=== PATIENT | male | born 1980 | race Caucasian/White ===

== ENCOUNTER 2020-11-13 21:16 | Emergency (ER) | payer OTHER ==
[~2020-11-13 21:16] MED LIST: Iopamidol-370 76% 500 ML 1 ML ONE
[2020-11-13] MEDS ORDERED: Morphine 4 MG/ML VIAL ONE (22:15)
[2020-11-13] MEDS ORDERED: Ondansetron PF 4 MG/2 ML Vial ONE (22:15)
[2020-11-13 22:22] LABS: #Basophils 0.1 thou/uL (0.0-0.2); #Eosinphils 0.2 thou/uL (0.0-0.7); #Lymphocytes 2.5 thou/uL (1.20-3.40); #Monocytes 0.8 thou/uL (0.11-0.59); #Neutrophils 9.8 thou/uL (1.40-6.50); %Basophils 0.5 % (0.0-1.0); %Eosinophils 1.6 % (0.0-10.0); %Lymphocytes 18.6 % (21.0-51.0); %Monocytes 5.9 % (0.0-10.0); %Neutrophils 73.4 % (42.0-75.0); Hemoglobin 14.6 g/dL (14.0-18.0); Mean Corpuscular HGB CONC 34.3 g/dL (32.0-36.0); Mean Corpuscular Hemoglobin 33.3 pg (27.0-31.0); Mean Corpuscular Volume 97.1 fL (78.0-98.0); Mean Platelet Volume 7.7 fL (7.4-10.4); Platelet Count 277 thou/uL (130-400); RBC Distribution Width 11.7 % (11.5-14.5); Red Blood Cell (RBC) Count 4.38 mill/uL (4.70-6.10); White Blood Cell (WBC) Count 13.3 thou/uL (4.8-10.8)
[2020-11-13 22:37] LABS: ALT (SGPT) 14 U/L (8-55); AST (SGOT) 25 U/L (5-34); Albumin 4.4 g/dL (3.5-5.0); Alkaline Phosphatase 68 U/L (40-110); Anion Gap 12 mmol/L (10-20); BUN (Urea Nitrogen) 18 mg/dL (8.9-20.6); Bilirubin, Total 0.6 mg/dL (0.2-1.2); Calc. Creatinine Clearance 0 mL/min (70-130); Calcium 9.2 mg/dL (7.8-10.44); Carbon Dioxide 23 mmol/L (22-29); Chloride 108 mmol/L (98-107); Globulin 2.7 g/dL (2.4-3.5); Glucose 94 mg/dL (70-105); Potassium 4.1 mmol/L (3.5-5.1); Protein, Total 7.1 g/dL (6.0-8.3); Sodium 139 mmol/L (136-145)
[2020-11-14] MEDS ORDERED: Ketorolac Tromethamine 30 MG/ML VIAL ONE (00:01)
== END 2020-11-14 00:09 | disposition home or self-care (01) ==
LOC: ERS 21:16
DX: S09.90XA Unspecified injury of head, initial encounter (principal); M25.512 Pain in left shoulder; M54.2 Cervicalgia; W17.89XA Other fall from one level to another, initial encounter
CPT/HCPCS: 36415; 70450; 71260; 72040; 72072; 72100; 72125; 80053; 85025; 96374; 96375; J1885; J2270; J2405; Q9967

== ENCOUNTER 2022-01-31 16:57 | Emergency (ER) | payer MEDICARE, OTHER ==
[2022-01-31 17:58] LABS: #Basophils 0.1 thou/uL (0.0-0.2); #Eosinphils 0.3 thou/uL (0.0-0.7); #Lymphocytes 2.5 thou/uL (1.20-3.40); #Monocytes 0.5 thou/uL (0.11-0.59); %Basophils 0.7 % (0.0-1.0); %Eosinophils 2.7 % (0.0-10.0); %Lymphocytes 26.9 % (21.0-51.0); %Monocytes 5.4 % (0.0-10.0); %Neutrophils 64.4 % (42.0-75.0); Hemoglobin 15.8 g/dL (14.0-18.0); Mean Corpuscular HGB CONC 32.9 g/dL (32.0-36.0); Mean Corpuscular Hemoglobin 31.8 pg (27.0-31.0); Mean Corpuscular Volume 96.6 fL (78.0-98.0); Mean Platelet Volume 7.1 fL (7.4-10.4); Platelet Count 360 thou/uL (130-400); RBC Distribution Width 12.6 % (11.5-14.5); Red Blood Cell (RBC) Count 4.97 mill/uL (4.70-6.10); White Blood Cell (WBC) Count 9.3 thou/uL (4.8-10.8)
[2022-01-31] MEDS ORDERED: Morphine 4 MG/ML VIAL ONE (18:09)
[2022-01-31] MEDS ORDERED: Ketorolac Tromethamine 30 MG/ML VIAL ONE (18:09)
[2022-01-31] MEDS ORDERED: Acetaminophen 500 MG TAB ONE (18:09)
[2022-01-31 18:19] LABS: Anion Gap 13 mmol/L (10-20); BUN (Urea Nitrogen) 9 mg/dL (8.9-20.6); Calc. Creatinine Clearance 0 mL/min (70-130); Carbon Dioxide 21 mmol/L (22-29); Chloride 110 mmol/L (98-107); Potassium 4.1 mmol/L (3.5-5.1); Sodium 140 mmol/L (136-145)
[2022-01-31 18:20] LABS: ALT (SGPT) 11 U/L (8-55); AST (SGOT) 17 U/L (5-34); Alkaline Phosphatase 133 U/L (40-110); Bilirubin, Total 0.3 mg/dL (0.2-1.2); CRP (Inflammatory) 0.61 mg/dL (= or < 0.5); Calcium 9.5 mg/dL (7.8-10.44); Globulin 3.4 g/dL (2.4-3.5); Glucose 81 mg/dL (70-105); Protein, Total 7.4 g/dL (6.0-8.3)
== END 2022-01-31 19:04 | disposition home or self-care (01) ==
LOC: ERS 16:57
DX: G89.18 Other acute postprocedural pain (principal); M79.604 Pain in right leg
CPT/HCPCS: 36415; 80053; 85025; 85652; 86140; 96372; J1885; J2270

== ENCOUNTER 2022-09-16 00:48 | Inpatient (IN) | payer MEDICARE, OTHER ==
[2022-09-16] MEDS ORDERED: Lidocaine 1% w/Epinephrine 1:100K 20 ML VIAL ONE (01:09)
[2022-09-16] MEDS ORDERED: Gentamicin 500 MG in Sodium Chloride 0.9% 100 ML IVPB SCH (01:15)
[2022-09-16] MEDS ORDERED: Ondansetron PF 4 MG/2 ML Vial ONE (01:46)
[2022-09-16] MEDS ORDERED: Morphine 4 MG/ML VIAL ONE (01:46)
[2022-09-16] MEDS ORDERED: Clindamycin/D5W 900 mg/50 ml Premix Bag ONE (02:17)
[2022-09-16] MEDS ORDERED: Acetaminophen 500 MG TAB PO SCH ×2 (04:00→12:00)
[2022-09-16] MEDS: Morphine 4 MG/ML VIAL SLOW IVP PRN ×2 (04:22→08:55)
[2022-09-16 04:26] VITALS: BMI 26.6
[2022-09-16] MEDS ORDERED: Dextrose 5% in Water 1,000 ML IV PRN (05:13)
[2022-09-16] MEDS ORDERED: Ondansetron ODT 4 MG TAB PO PRN (05:13)
[2022-09-16] MEDS ORDERED: hydrALAZINE 20 MG/ML VIAL SLOW IVP PRN (05:13)
[2022-09-16] MEDS ORDERED: Dextrose 50% Abboject 50 ML SYRINGE SLOW IVP PRN (05:13)
[2022-09-16] MEDS ORDERED: Ipratropium/Albuterol 3 ML NEB NEB PRN (05:13)
[2022-09-16] MEDS ORDERED: Ondansetron PF 4 MG/2 ML Vial IVP PRN (05:13)
[2022-09-16] MEDS ORDERED: Sodium Chloride 0.9% 1,000 ML IV SCH (05:15)
[2022-09-16 05:51] LABS: #Eosinphils 0.1 thou/uL (0.0-0.7); #Lymphocytes 1.8 thou/uL (1.20-3.40); #Monocytes 0.4 thou/uL (0.11-0.59); #Neutrophils 5.3 thou/uL (1.40-6.50); %Basophils 0.5 % (0.0-1.0); %Eosinophils 1.2 % (0.0-10.0); %Lymphocytes 23.1 % (21.0-51.0); %Monocytes 5.4 % (0.0-10.0); %Neutrophils 69.8 % (42.0-75.0); Mean Corpuscular HGB CONC 33.7 g/dL (32.0-36.0); Mean Corpuscular Hemoglobin 33.1 pg (27.0-31.0); Mean Platelet Volume 8.1 fL (7.4-10.4); Platelet Count 225 10x3/uL (130-400); RBC Distribution Width 11.8 % (11.5-14.5); Red Blood Cell (RBC) Count 4.54 mill/uL (4.70-6.10); White Blood Cell (WBC) Count 7.6 10x3/uL (4.8-10.8)
[2022-09-16] MEDS: traMADol HCl 50 MG TAB PO SCH ×3 (06:11→15:53)
[2022-09-16] MEDS: Ketorolac Tromethamine 30 MG/ML VIAL IVP SCH ×2 (06:12→12:19)
[2022-09-16 06:18] LABS: SARS-CoV-2 NAA Rapid Test Not Detected (NotDetected)
[2022-09-16 06:24] LABS: ALT (SGPT) 17 U/L (8-55); AST (SGOT) 24 U/L (5-34); Albumin 3.5 g/dL (3.5-5.0); Alkaline Phosphatase 74 U/L (40-110); Anion Gap 13 mmol/L (10-20); BUN (Urea Nitrogen) 9 mg/dL (8.9-20.6); Bilirubin, Total 0.5 mg/dL (0.2-1.2); Calc. Creatinine Clearance 139 mL/min (70-130); Calcium 8.6 mg/dL (7.8-10.44); Carbon Dioxide 20 mmol/L (22-29); Chloride 108 mmol/L (98-107); Estimated GFR 107; Globulin 2.4 g/dL (2.4-3.5); Glucose 115 mg/dL (70-105); Magnesium 1.9 mg/dL (1.6-2.6); Phosphorus 4.3 mg/dL (2.3-4.7); Potassium 3.6 mmol/L (3.5-5.1); Protein, Total 5.9 g/dL (6.0-8.3); Sodium 137 mmol/L (136-145)
[2022-09-16] MEDS: Gabapentin 300 MG CAP PO SCH ×2 (08:45→16:02)
[2022-09-16] MEDS ORDERED: Famotidine 20 MG TAB PO SCH (09:00)
[2022-09-16] MEDS ORDERED: Polyethylene Glycol 3350 17 GM Packet PO SCH (09:00)
[2022-09-16] MEDS ORDERED: Senokot S 8.6-50 MG TAB PO SCH (09:00)
[2022-09-16] MEDS ORDERED: Clindamycin/D5W 600 MG in Premix Bag 1 BAG IVPB SCH (09:00)
[2022-09-16] MEDS ORDERED: Fentanyl 100 MCG/2 ML VIAL ONE ×3 (11:40→13:50)
[2022-09-16] MEDS ORDERED: fentaNYL PF 100 MCG/2 ML SYRINGE ONE (11:50)
[2022-09-16] MEDS ORDERED: Midazolam HCl 2 mg/2 ml Vial ONE (11:50)
[2022-09-16] MEDS ORDERED: Lidocaine 1% PF 5 ML VIAL ONE (12:04)
[2022-09-16] MEDS ORDERED: PROPOFOL 200 MG/20 ML VIAL ONE (12:04)
[2022-09-16] MEDS ORDERED: Lidocaine 2% PF 5 ML VIAL ONE (12:21)
[2022-09-16] MEDS ORDERED: Ondansetron HCl/PF 4 MG/2 ML Vial IVP PRN (13:00)
[2022-09-16] MEDS ORDERED: Promethazine HCl 25 MG/ML VIAL IM PRN (13:00)
[2022-09-16] MEDS ORDERED: Ketorolac Tromethamine 30 MG/ML VIAL ONE (13:32)
[2022-09-16] MEDS ORDERED: Clindamycin 150 MG CAP PO SCH (17:00)
[2022-09-16 17:02] VITALS: BP 115/78; TEMP 96.8
== END 2022-09-16 17:03 | disposition home or self-care (01) | DRG 906 ==
LOC: ERS 00:48 → SJJU 02:30 → OBSVTOIN 02:30
PROVIDERS: ADMIT Specialist; ATTEND Specialist
PROC: 0X6W0Z3 Detachment at Left Little Finger, Low, Open Approach (ICD-10-PCS; principal; 2022-09-16)
PROC: 0X6T0Z3 Detachment at Left Ring Finger, Low, Open Approach (ICD-10-PCS; 2022-09-16)
DX: S68.625A Partial traumatic transphalangeal amputation of left ring finger, initial encounter (principal); S68.627A Partial traumatic transphalangeal amputation of left little finger, initial encounter; G89.11 Acute pain due to trauma; Z20.822 Contact with and (suspected) exposure to COVID-19; Z88.0 Allergy status to penicillin; Z98.890 Other specified postprocedural states; Z90.49 Acquired absence of other specified parts of digestive tract; Z98.84 Bariatric surgery status; W31.2XXA Contact with powered woodworking and forming machines, initial encounter
CPT/HCPCS: 36415; 64450; 80053; 83735; 84100; 85025; 96365; 96375; J1580; J1885; J1956; J2001; J2250; J2270; J2405; J2704; J3010; J3490; J7050; U0002